=== PATIENT | female | born 1995 ===

== ENCOUNTER 2020-06-27 07:26 | Outpatient (CLI) | payer BC ==
[2020-06-27 08:04] VITALS: BP 110/56
--- NOTE | 2020-06-27 09:09 | Ultrasound Report ---
OB ULTRASOUND >= 14 WEEKS FETUS INDICATION: Rule out ROM, RACHEL, estimated weight COMPARISON: None FINDINGS: A single gestation intrauterine is present with cephalic presentation. The placenta is ante rior and free of the cervical os. heart tones measure 133 bpm. Amniotic fluid volume is normal with a fluid index of 8.3. anatomical survey was not performed. Biparietal diameter is 9.2 cm which equals 37 weeks 3 days. Head circumference is 34.0 cm which equals 39 weeks 1 day. Abdominal circumference is 36.5 cm which equals 40 weeks 3 days. Femur length is 7.0 cm which equals 35 weeks 5 days. Overall estimated sonographic age is 38 weeks 1 day. EDC: 07/10/2020. HC/AC ratio: 0.93 Cephalic index: 86.9 Estimated weight 3639 g. 70 PERCENTILE. IMPRESSION: Viable single intrauterine as described. No acute abnormality is detected. Signer Name: Priyank Pierre Jr, MD Signed: 06/27/2020 9:05 AM Workstation Name: [id number]
[2020-06-27 10:09] LABS: Bacteria,Urine 4+ /HPF (Negative); Bilirubin,Urine NEG (Negative); Blood,Urine NEG (Negative); Color,Urine Yellow (Yellow); Hyaline Casts,Urine 1 /LPF; Mucus,Urine 2+ /HPF; Urobilinogen,Urine < 2.0 mg/dL (<2.0)
[2020-06-27 10:21] LABS: Protein,Urine <15 mg/dL mg/dL (Negative)
== END 2020-06-27 10:45 | disposition home or self-care (01) ==
LOC: TRG 07:26 → APU 07:27 → TRG 10:45
PROVIDERS: ATTEND Obstetrics & Gynecology
DX: O42.92 Full-term premature rupture of membranes, unspecified as to length of time between rupture and onset of labor (principal); Z37.9 Outcome of delivery, unspecified; Z3A.38 38 weeks gestation of pregnancy
CPT/HCPCS: 59025; 76816; 81001

== ENCOUNTER 2020-07-01 15:31 | Outpatient (CLI) | payer BC ==
[2020-07-01 16:06] VITALS: BP 111/56
[2020-07-01] MEDS ORDERED: LACTATED RINGERS 1,000 ML IV SCH (16:45)
== END 2020-07-01 17:30 | disposition home or self-care (01) ==
LOC: TRG 15:31 → APU 15:32 → TRG 17:30
PROVIDERS: ATTEND Obstetrics & Gynecology
DX: O42.92 Full-term premature rupture of membranes, unspecified as to length of time between rupture and onset of labor (principal); Z3A.39 39 weeks gestation of pregnancy
CPT/HCPCS: 59025

== ENCOUNTER 2020-07-03 03:57 | Outpatient (CLI) | payer BC ==
[2020-07-03 05:49] VITALS: BP 112/55
[2020-07-03] MEDS ORDERED: hydrOXYzine HCL 100 MG/2 ML INJ IM NR (07:28)
== END 2020-07-03 08:05 | disposition home or self-care (01) ==
LOC: TRG 03:57
PROVIDERS: ATTEND Obstetrics & Gynecology
DX: O47.1 False labor at or after 37 completed weeks of gestation (principal); Z3A.39 39 weeks gestation of pregnancy
CPT/HCPCS: 59025; J3410

== ENCOUNTER 2020-07-04 04:02 | Inpatient (IN) | payer BC ==
--- NOTE | 2020-07-04 06:09 | History and Physical Report ---
History of Present Illness Date of examination: 07/04/20 History of present illness: Patient presented to labor and delivery with complaints of regular contractions. On initial exam by the triage nurse the patient was an active labor cervix 5 cm dilated she has been admitted with a diagnosis of active labor at term. Menstrual History Regularity: regular Menses every: 28 days Duration: 6 LMP: 08/24/2019 LMP reliability: definite LMP character: normal test type: urine test Date: 11/24/2019 BC at conception: none Planned ? yes EDC Calculations LMP: 05/30/2020 EDC Confirmation: 07/05/2020 Past History : 1 Term Births: 0 Premature Births: 0 Living Children: 0 Para: 0 Mult. Births: 0 Prev : 0 Prev. attempt? 0 Aborta: 0 Elect. Ab: 0 Spont. 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 of genital herpes: no Partner hx. of genital herpes: no Rash, Viral, or Febrile illness since last LMP? no Varicella/Chicken Pox Status: Immunized Genetic History Congenital Heart Defect: Mom: no Dad: no Onelia Disease: Mom: no Dad: no Thalassemia Mom: no Dad: no Neural Tube Defect Mom: no Dad: no Down's Syndrome Mom: no Dad: no Isaac-Sachs Mom: no Dad: no Sickle Cell Disease/Trait Mom: no Dad: no Hemophilia Mom: no Dad: no Muscular Dystrophy Mom: no Dad: no Cystic Fibrosis Mom: no Dad: no [place] Chorea Mom: no Dad: no Mental Retardation Mom: no Dad: no Fragile X Mom: no Dad: no Other Genetic/Chromosomal Disorder Mom: no Dad: no Child w/other defect Mom: no Dad: no Enviromental Exposures Xray Exposure: no Medication, drug, or alcohol use since LMP: no Chemical/Other Exposure: no Exposure to Cat Liter: yes Hx of Parvovirus (Fifth Disease): no Occupational Exposure to Children: none 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, 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 Current Allergies (reviewed today): No known allergies Routine Urinalysis Past History Past Medical History: other (See HPI for details) Past Surgical History: other (See HPI for details) 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 (See HPI for details) Family/Genetic History: other (See HPI for details) Social history: other (See HPI for details) - Obstetrical History : 1 Para: 0 Hx # Term Pregnancies: 0 Number of Pregnancies: 0 Spontaneous Abortions: 0 Induced : 0 Number of Living Children: 0 Medications and Allergies Allergies Allergy/AdvReac Type Severity Reaction Status Date / Time No Known Allergies Allergy Verified 07/01/20 16:08 Home Medications Medication Instructions Recorded Confirmed Last Taken Type Vitamin 1 tab PO DAILY 07/01/20 07/04/20 07/03/20 History Ferrous Sulfate [Feosol 325 MG tab] 325 mg PO BID #60 tablet 07/05/20 Unknown Rx Ibuprofen [Motrin 800 MG tab] 800 mg PO Q8HR PRN #30 tablet 07/05/20 Unknown Rx - Vital Signs Vital signs: Vital Signs Pulse Pulse Ox 88 100 07/04/20 04:19 07/04/20 04:19 Temp Pulse Resp BP Pulse Ox 98.5 F 74 18 117/64 99 07/04/20 04:23 07/04/20 06:04 07/04/20 04:23 07/04/20 04:23 07/04/20 06:04 - Physical Exam Breasts: Positive: deferred Cardiovascular: Regular rate Lungs: Positive: Normal air movement Abdomen: Positive: normal appearance, soft Cervix: Positive: other (Per RN) Uterus: Positive: enlarged - Obstetrical FHR: category 1 Uterine Contraction Monitor Mode: Palpation Uterine Contraction Intensity: Strong/Firm Results Result Diagrams: 07/04/20 23:52 All other labs normal. Assessment and Plan - Patient Problems (1) Active labor at term Status: Acute Plan to address problem: We will admit to labor and delivery and follow labor and delivery protocol patient desires epidural will apply continue with expectant management
[2020-07-04] MEDS ORDERED: ACETAMINOPHEN 325 MG TAB PO PRN ×2 (06:10→14:19)
[2020-07-04] MEDS ORDERED: BUTORPHANOL 2 MG/1 ML INJ IV PRN ×2 (06:10)
[2020-07-04] MEDS ORDERED: PROMETHAZINE 25 MG TAB PO PRN ×2 (06:10→14:19)
[2020-07-04] MEDS ORDERED: ePHEDrine SULFATE 50 MG/1 ML INJ IV PRN (06:10)
[2020-07-04] MEDS ORDERED: LIDOCAINE (2%) 20 MG/1 ML VIAL 20 ML MDV INFILTRATI ONE (06:10)
[2020-07-04] MEDS ORDERED: TERBUTALINE 1 MG/1 ML INJ SUB-Q PRN (06:10)
[2020-07-04] MEDS ORDERED: LACTATED RINGERS 1,000 ML IV SCH (06:15)
[2020-07-04 06:29] LABS: Hematocrit 30.2 % (30.3-42.9); Hemoglobin 9.8 gm/dl (10.1-14.3); Mean Corpuscular HGB Conc 33 % (30-34); Platelet Count 216 K/mm3 (140-440); Red Blood Count 4.34 M/mm3 (3.65-5.03); Red Cell Distribution Width 17.9 % (13.2-15.2)
[2020-07-04 06:30] LABS: Mean Corpuscular Volume 70 fl (79-97)
[2020-07-04] MEDS ORDERED: OXYTOCIN DRIP 30 UNITS/500 ML BAG IV SCH ×2 (08:00→14:19)
--- NOTE | 2020-07-04 08:13 | Progress Note ---
Assessment and Plan A: 24 y.o. @ term, active labor. Cervical exam 100/0. P: Declines epidural. Continue to monitor active labor. Anticipate . Subjective - Subjective Date of service: 07/04/20 (Pt feeling pressure) Principal diagnosis: IUP @ term, active labor Patient reports: contractions, other (Pressure with the contractions. ) Objective - Vital Signs Vital Signs: Vital Signs - 12hr 07/04/20 07/04/20 07/04/20 04:19 04:20 04:23 Temperature 98.5 F Pulse Rate 88 93 H 84 Respiratory 18 Rate Blood Pressure 117/64 Blood Pressure 117/64 [Left] O2 Sat by Pulse 100 98 Oximetry 07/04/20 07/04/20 07/04/20 04:24 04:29 04:34 Temperature Pulse Rate 110 H 90 93 H Respiratory Rate Blood Pressure Blood Pressure [Left] O2 Sat by Pulse 98 98 99 Oximetry 07/04/20 07/04/20 07/04/20 04:39 04:44 04:49 Temperature Pulse Rate 73 89 90 Respiratory Rate Blood Pressure Blood Pressure [Left] O2 Sat by Pulse 99 99 98 Oximetry 07/04/20 07/04/20 07/04/20 04:54 04:55 04:59 Temperature Pulse Rate 86 90 87 Respiratory Rate Blood Pressure Blood Pressure [Left] O2 Sat by Pulse 98 94 97 Oximetry 07/04/20 07/04/20 07/04/20 05:04 05:09 05:14 Temperature Pulse Rate 73 101 H 94 H Respiratory Rate Blood Pressure Blood Pressure [Left] O2 Sat by Pulse 99 99 97 Oximetry 07/04/20 07/04/20 07/04/20 05:19 05:24 05:29 Temperature Pulse Rate 94 H 95 H 85 Respiratory Rate Blood Pressure Blood Pressure [Left] O2 Sat by Pulse 96 92 98 Oximetry 07/04/20 07/04/20 07/04/20 05:34 05:39 05:40 Temperature Pulse Rate 97 H 92 H 94 H Respiratory Rate Blood Pressure Blood Pressure [Left] O2 Sat by Pulse 98 98 94 Oximetry 07/04/20 07/04/20 07/04/20 05:44 05:49 05:54 Temperature Pulse Rate 95 H 88 98 H Respiratory Rate Blood Pressure Blood Pressure [Left] O2 Sat by Pulse 97 97 97 Oximetry 07/04/20 07/04/2007/04/20 05:59 06:04 06:09 Temperature Pulse Rate 95 H 74 86 Respiratory Rate Blood Pressure Blood Pressure [Left] O2 Sat by Pulse 98 99 98 Oximetry 07/04/20 07/04/20 07/04/20 06:14 06:19 06:24 Temperature Pulse Rate 93 H 83 111 H Respiratory Rate Blood Pressure Blood Pressure [Left] O2 Sat by Pulse 98 98 99 Oximetry 07/04/20 07/04/20 07/04/20 07:44 07:45 07:46 Temperature 97.7 F Pulse Rate 86 98 H 77 Respiratory 16 Rate Blood Pressure 116/59 Blood Pressure 116/59 [Left] O2 Sat by Pulse 100 99 Oximetry 07/04/20 07/04/20 07/04/20 07:50 07:55 08:00 Temperature Pulse Rate 93 H 91 H 78 Respiratory Rate Blood Pressure Blood Pressure [Left] O2 Sat by Pulse 99 99 100 Oximetry 07/04/20 07/04/20 08:05 08:10 Temperature Pulse Rate 72 96 H Respiratory Rate Blood Pressure Blood Pressure [Left] O2 Sat by Pulse 99 98 Oximetry - Exam Breasts: deferred Cardiovascular: Regular rate Lungs: Normal air movement Abdomen: Present: normal appearance, soft Vulva: both: normal Uterus: Present: normal FHR: category 1 Uterine Contraction Monitor Mode: External Cervical Dilatation: 9 Cervical Effacement Percentage: 100 station: 0 Uterine Contraction Pattern: Irregular Uterine Tone Measurement Phase: Resting Extremities: normal Deep Tendon Reflex Grade: Normal +2 - Labs Labs: Abnormal Labs 07/04/20 06:07 WBC 14.7 H Hgb 9.8 L Hct 30.2 L MCV 70 L MCH 23 L RDW 17.9 H Laboratory Results - last 24 hr 07/04/20 07/04/20 06:07 06:07 WBC 14.7 H RBC 4.34 Hgb 9.8 L Hct 30.2 L MCV 70 L MCH 23 L MCHC 33 RDW 17.9 H Plt Count 216 Blood Type O POSITIVE Antibody Screen Negative
[2020-07-04] MEDS ORDERED: ACETAMINOPHEN 500 MG TAB PO PRN (09:47)
[2020-07-04] MEDS ORDERED: MINERAL OIL 30 ML ORAL LIQD ONE (10:09)
[2020-07-04] MEDS: OXYTOCIN DRIP 30 UNITS/500 ML BAG IV SCH ×2 (10:43→11:45)
[2020-07-04] MEDS ORDERED: miSOPROStol 100 MCG TAB ONE ×2 (10:45→10:46)
[2020-07-04] MEDS ORDERED: miSOPROStol 200 MCG TAB PR ONE (10:50)
--- NOTE | 2020-07-04 11:05 | Procedure Note ---
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 Placed skin to skin with mother, crying and vigorous. 3 vessel umbilical cord clamped and cut after cessation of pulsation. Spontaneous placenta delivered complete and intact. Brisk bleeding after delivery of placenta. Clots expressed. Cytotec 800mcg placed HI. Fundus firm and midline. Scant lochia. all counts complete. Mother and baby LDR stable. - Infant A at 1 minute: 8 at 5 minutes: 9 Gender: Female (7lbs 4oz.)
[2020-07-04] MEDS ORDERED: IBUPROFEN 800 MG TAB PO PRN (11:11)
[2020-07-04] MEDS ORDERED: IBUPROFEN 800 MG TAB PO SCH (11:30)
[2020-07-04] MEDS ORDERED: diphenhydrAMINE 25 MG CAP PO PRN (14:19)
[2020-07-04] MEDS ORDERED: BENZOCAINE/MENTHOL 20/0.5% TOP SPRAY 56 GM TP PRN (14:19)
[2020-07-04] MEDS ORDERED: MAGNESIUM HYDROXIDE (MOM) ORAL LIQD UDC PO PRN (14:19)
[2020-07-04] MEDS ORDERED: LANOLIN/ZINC/DIMETHICONE (LANSINOH) 7 GM TP PRN (14:19)
[2020-07-04] MEDS ORDERED: ONDANSETRON 4 MG/2 ML INJ IV PRN (14:19)
[2020-07-04] MEDS ORDERED: WITCH HAZEL/ GLYCERIN PAD TP PRN (14:19)
[2020-07-04] MEDS: DOCUSATE SODIUM 100 MG CAP PO SCH (21:32)
[2020-07-05 00:35] LABS: Hematocrit 25.3 % (30.3-42.9); Hemoglobin 8.3 gm/dl (10.1-14.3)
[2020-07-05] MEDS: IBUPROFEN 600 MG TAB PO SCH ×2 (05:55→15:42)
[2020-07-05] MEDS ORDERED: DIPHtheria,PERTUSSIS(ACELL),TETANUS VACCINE/PF 0.5 ML VIAL IM ONE (06:00)
--- NOTE | 2020-07-05 08:29 | Discharge Summary ---
Providers - Providers Date of Admission: 07/04/20 06:11 Date of discharge: 07/05/20 (pt desires discharge home) Attending physician: DEN JON Primary care physician: DEN JON Hospitalization Reason for admission: term active labor Condition: Good Pertinent studies: post delivery H/H 8.3/25.3, asymptomatic anemia d/t acute blood loss Procedures: Hospital course: uncomplicated and course Disposition: - TO HOME OR SELFCARE - Discharge Diagnoses (1) (spontaneous vaginal delivery) Status: Acute Core Measure Documentation - Palliative Care Palliative Care/ Comfort Measures: Not Applicable - Core Measures Any of the following diagnoses?: none Exam - Constitutional Vitals: Temp Pulse Resp BP Pulse Ox 98.6 F 78 18 114/71 97 07/05/20 04:19 07/05/20 04:19 07/05/20 05:55 07/05/20 04:19 07/04/20 20:39 General appearance: Present: no acute distress, well-nourished - EENT Eyes: Present: PERRL ENT: hearing intact, clear oral mucosa, dentition normal - Neck Neck: Present: supple, normal ROM - Respiratory Respiratory effort: normal - Cardiovascular Rhythm: regular Heart Sounds: Present: S1 & S2. Absent: rub, click - Extremities Extremities: no ischemia, pulses intact, pulses symmetrical, No edema, normal temperature, normal color, Full ROM Peripheral Pulses: within normal limits - Abdominal General gastrointestinal: Present: soft, non-tender, non-distended, normal bowel sounds Female genitourinary: Present: normal - Rectal Rectal Exam: normal exam-external/orifice - Integumentary Integumentary: Present: clear, warm, dry, normal turgor - Musculoskeletal Musculoskeletal: gait normal, strength equal bilaterally - Psychiatric Psychiatric: appropriate mood/affect, intact judgment & insight - Neurologic Neurologic: CNII-XII intact, moves all extremities - Additional findings Additional findings: fundus firm and midline @U, scant lochia, support given, to see pt before discharge Plan Activity: advance as tolerated Diet: regular Follow up with: DEN JON MD [Primary Care Provider] - 08/02/20 (Felicidades!!! Please schedule your office visit in 4 weeks. Call [phone] if you have any questions or concerns!) Prescriptions: Ferrous Sulfate [Feosol 325 MG tab] 325 mg PO BID #60 tablet Ibuprofen [Motrin 800 MG tab] 800 mg PO Q8HR PRN #30 tablet PRN Reason: Pain
[2020-07-05] MEDS ORDERED: PRENATAL VIT27-FE FUMARATE-FOLIC ACID VIT TAB PO SCH (10:00)
[2020-07-05] MEDS ORDERED: FERROUS SULFATE 325 MG TAB PO SCH (10:00)
[2020-07-05] MEDS: DOCUSATE SODIUM 100 MG CAP PO SCH (10:21)
[2020-07-05 17:11] VITALS: BP 91/51
== END 2020-07-05 19:18 | disposition home or self-care (01) | DRG 806 ==
LOC: TRG 04:02 → APU 04:03 → TRG 06:11 → LD 06:11 → OBSVTOIN 06:11 → OB 13:05
PROVIDERS: ADMIT Obstetrics & Gynecology; ATTEND Obstetrics & Gynecology
PROC: 10E0XZZ Delivery of Products of Conception, External Approach (ICD-10-PCS; principal; 2020-07-04)
PROC: 3E0234Z Introduction of Serum, Toxoid and Vaccine into Muscle, Percutaneous Approach (ICD-10-PCS; 2020-07-05)
PROC: 3E0134Z Introduction of Serum, Toxoid and Vaccine into Subcutaneous Tissue, Percutaneous Approach (ICD-10-PCS; 2020-07-05)
DX: O62.0 Primary inadequate contractions (principal); D62 Acute posthemorrhagic anemia; Z37.0 Single live birth; O72.1 Other immediate postpartum hemorrhage; Z3A.00 Weeks of gestation of pregnancy not specified; O90.81 Anemia of the puerperium; Z20.828 Contact with and (suspected) exposure to other viral communicable diseases; O70.0 First degree perineal laceration during delivery; Z23 Encounter for immunization
CPT/HCPCS: 36415; 59025; 59200; 85014; 85018; 85027; 86850; 86900; 86901; 96360; 96361; 96365; 96366; G0378; A6250; J2590; J3410; J7120; U0003